=== PATIENT | female | born 1980 ===

== ENCOUNTER 2022-07-01 18:44 | Emergency (ER) ==
[~2022-07-01] VITALS: Ht 175.3 cm; Wt 90.9 kg
[2022-07-01] MEDS ORDERED: PAXI20TA29 PO (18:54)
[2022-07-01] MEDS ORDERED: OMEP1CAP73 PO (18:54)
== END 2022-07-01 21:41 | disposition left against medical advice (07) ==
LOC: M ED 18:44
DX: Z53.21 Procedure and treatment not carried out due to patient leaving prior to being seen by health care provider (principal)